=== PATIENT | male | born 1955 | race Caucasian/White ===

== ENCOUNTER → 2018-11-10 | Outpatient (CLI) | payer BC ==
--- NOTE | 2018-11-10 11:34 | CT ---
EXAMINATION TYPE: CT abdomen pelvis w con DATE OF EXAM: 11/10/2018 COMPARISON: 09/14/2013 HISTORY: Right upper quadrant pain CT DLP: 1090 mGycm CONTRAST: CT scan of the abdomen and pelvis is performed with Oral Contrast and with IV Contrast, patient injec je with 100 mL of Isovue 300. FINDINGS: LUNG BASES-: No visible nodule. No infiltrate. LIVER/GB: Cholecystectomy clips are in place. No space occupying hepatic lesion. Biliary tree is o f normal caliber. PANCREAS: No inflammation. No distinct mass. SPLEEN: No splenic enlargement. 7 mm hepatic hemangioma. ADRENALS: No nodule. No thickening. KIDNEYS/BLADDER: No hydronephrosis. No nephrolithiasis. No distinct renal mass. Urinary bladder g rossly unremarkable. BOWEL: Normal appendix. Normal bowel caliber. No inflammation. GENITAL ORGANS: No gross abnormality. LYMPH NODES: No greater than 1cm abdominal or pelvic lymph nodes are appreciated. AORTA: No significant abnormality. OSSEOUS STRUCTURES: No significant abnormality is seen. OTHER: No significant additional abnormality is seen. IMPRESSION: 1. No significant abnormality identified to account for the patient's symptoms at this time. Correlat e clinically.
== END | disposition home or self-care (01) ==
LOC: RADCTMAIN 09:03
PROVIDERS: ATTEND Surgery
DX: R10.9 Unspecified abdominal pain (principal)
CPT/HCPCS: 74177; Q9967 ×2

== ENCOUNTER 2019-01-23 11:14 | Day surgery (SDC) | payer BC ==
[2019-01-17 11:44] VITALS: BMI 28.5
[~2019-01-23 11:14] MED LIST: DEXAMETHASONE SOD PHOSPHATE 10 MG/ML 1 ML VIAL IV ONE; HYDROmorphone 0.5 MG/0.5 ML SYRINGE IVP PRN; LACTATED RINGERS 1,000 ML IV SCH; MIDAZOLAM 2 MG/2 ML VIAL IV PRN; ONDANSETRON 4 MG/2 ML VIAL IVP ONE; Pre Op ABX Message 1 EACH MISC MISCELLANE ONE; SCOPOLAMINE 1.5MG/72HR PATCH TRANSDERM ONE
[2019-01-23] MEDS ORDERED: LIDOCAINE 1% 20 ML VIAL (10MG/ML) FOR IV START INTRADERMA ONE (11:50)
[2019-01-23] MEDS ORDERED: NEOSTIGMINE 1 MG/ML 10 ML VIAL ONE (12:20)
[2019-01-23] MEDS ORDERED: SUCCINYLCHOLINE CHLORIDE 100 MG/5 ML SYR IV ONE (12:20)
[2019-01-23] MEDS ORDERED: MIDAZOLAM 2 MG/2 ML VIAL ONE (12:20)
[2019-01-23] MEDS ORDERED: ROCURONIUM BROMIDE 10 MG/ML 10 ML VIAL IV ONE (12:20)
[2019-01-23] MEDS ORDERED: PROPOFOL 10 MG/ML 20 ML VIAL IV ONE (12:20)
[2019-01-23] MEDS ORDERED: LIDOCAINE 1% INJ 10MG/ML (20 ML MDV) ONE (12:20)
[2019-01-23] MEDS ORDERED: HYDROmorphone (PF) 1 MG/ML ONE (12:20)
[2019-01-23] MEDS ORDERED: GLYCOPYRROLATE 0.2 MG/ML 2 ML VIAL ONE (12:20)
[2019-01-23] MEDS ORDERED: KETOROLAC 30 MG/ML 1 ML VIAL ONE (12:20)
[2019-01-23] MEDS ORDERED: fentaNYL (PF) 50 MCG/ML 2 ML AMP ONE (12:20)
[2019-01-23] MEDS ORDERED: BUPIVACAIN-EPI 0.25%-1:200,000 30 ML VIAL SQ ONE (12:53)
[2019-01-23] MEDS ORDERED: GELATIN SPONGE,ABSORB (LARGE) 1 EACH SPONGE TOPICAL ONE (12:53)
--- NOTE | 2019-01-23 13:38 | P.OP ---
Date of Procedure: 01/23/19 Preoperative Diagnosis: Internal and external hemorrhoids Postoperative Diagnosis: Internal and external hemorrhoids with prolapse Procedure(s) Performed: Rectal exam under anesthesia, stapled hemorrhoideopexy, hemorrhoidectomy Anesthesia: JANICE Surgeon: Briseida Michel Estimated Blood Loss (ml): 10 Pathology: other (Hemorrhoids) Condition: stable Disposition: PACU Indications for Procedure: Patient presents with symptomatic hemorrhoids Description of Procedure: The patient was taken the operative suite where he is prepped and draped in the usual sterile manner under a general endotracheal anesthetic. A digital rectal exam is carried out. An anoscope was inserted and all areas are examined. He has a significantly enlarged hemorrhoidal pillar in the right anterior portion of the anus. There is also a smaller one in the right posterior lateral po rtion. There is evidence of mucosal prolapse. Decision was made to perform a stapled hemorrhoideopexy. An anal dilator with obturator is placed. The dilator is adjusted until it is the mid portion of the dentate line. A pursestring suture of 2-0 Prolene is then placed 4-5 cm proximal to the dentate line. The stapler is inserted until the anvil is proximal to the pursestring. The pursestring is then tied down and the limbs are brought through the appropriate openings. The stapler is closed until the indicator is in the mid green portion. It is held for 1 minute, fired, held for an additional minute. It is then derotated and removed. That did a good job of reducing the prolapse except for a section anteriorly. Therefore a second firing was obtained. They gave good reduction of all the prolapse. The hemorrhoidal pillar anteriorly is then grasped and removed with harmonic scissors. The skin and mucosal defect are closed with 3-0 chromic. There is initially additional pillar posterior lateral which is removed and repaired in a similar manner. A perianal and pudendal block is then carried out. He's taken to recovery room in satisfactory condition. According to or personnel, all counts WERE correct. Plan - Discharge Summary Discharge Rx Participant: Yes New Discharge Prescriptions: New HYDROcodone/APAP 5-325MG [[place] 5-325] 1 - 2 tab PO Q4H PRN #30 tab PRN Reason: Pain Dibucaine [Nupercainal] 60 gm RC QID PRN #1 oint...g. PRN Reason: Pain No Action Montelukast [Singulair] 10 mg PO HS Loratadine [Claritin] 10 mg PO DAILY Discharge Medication List Loratadine [Claritin] 10 mg PO DAILY 09/04/15 [History] Montelukast [Singulair] 10 mg PO HS 09/04/15 [History] Dibucaine [Nupercainal] 60 gm RC QID PRN #1 oint...g. 01/23/19 [Rx] HYDROcodone/APAP 5-325MG [[place] 5-325] 1 - 2 tab PO Q4H PRN #30 tab 01/23/19 [Rx] Follow up Appointment(s)/Referral(s): Briseida Michel DO [Doctor of Osteopathic Medicine] - 2 Weeks Activity/Diet/Wound Care/Special Instructions: May use ice to the incision for 1-2 days. May sit in a tub of warm water as needed for discomfort. Expect some oozing. Avoid constipation. Goal is for 1- 2 soft bowel movements daily. May use an [id number] stool softener 1-3 times a day as needed. Drink plenty of fluids. 2 tablespoons milk of magnesia if constipation. Discharge Disposition: HOME SELF-CARE
[2019-01-23] MEDS ORDERED: LACTATED RINGERS 1,000 ML IV ONE (13:57)
[2019-01-23 14:02] VITALS: RESP 16
[2019-01-23 14:04] VITALS: TEMP 97.1
[2019-01-23 16:01] VITALS: BP 127/75; PULSE 68
== END 2019-01-23 16:12 | disposition home or self-care (01) ==
LOC: OR 11:14
PROVIDERS: ATTEND Surgery
DX: K64.8 Other hemorrhoids (principal); R76.8 Other specified abnormal immunological findings in serum; N28.9 Disorder of kidney and ureter, unspecified; Z86.19 Personal history of other infectious and parasitic diseases; M32.9 Systemic lupus erythematosus, unspecified; Z90.49 Acquired absence of other specified parts of digestive tract; Z80.0 Family history of malignant neoplasm of digestive organs; Z80.1 Family history of malignant neoplasm of trachea, bronchus and lung; Z80.3 Family history of malignant neoplasm of breast; Z80.41 Family history of malignant neoplasm of ovary; Z79.899 Other long term (current) drug therapy; Z91.048 Other nonmedicinal substance allergy status
CPT/HCPCS: 88304; 46260; J2250; J1100; J2710; J2405; J2001; J3010; J1885; J1170; J0330; J2704